=== PATIENT | female | born 1980 | race Caucasian/White ===

== ENCOUNTER 2025-01-23 11:24 | Emergency (ER) | payer OTHER, SELFPAY ==
[2025-01-23 11:29] VITALS: BP 136/76
--- NOTE | 2025-01-23 11:55 | ED.GENMED ---
History of Present Illness
General
Chief Complaint: Rectal Bleeding
Time Seen by Provider: 01/23/25 11:55
History of Present Illness
History of Present Illness:
TIME OF INITIAL ENCOUNTER: 12 PM
HPI: Last night at around 2 AM, the patient woke up to use the bathroom but also had sensation that she needed to have a bowel movement. She developed some cramping sensation. She then became diaphoretic and had a rather intense discomfort however
after she had what felt to be a loose bowel movement, she felt improved. She did not turn the lights on at that time and did not look at the stool. In the morning she had some additional cramping sensation and had another bowel movement this time
it was noted to be red blood. Currently she has minimal if any cramping and overall feels improved. She had a sensation of chills overnight.
EXAM:
GENERAL: Well appearing in no distress
HEENT: Moist oral mucosa
CARDIOVASCULAR: No murmurs, borderline tachycardic heart rate, regular rhythm, No chest wall tenderness
PULMONARY: No respiratory distress, breath sounds are clear and equal
ABDOMEN: Soft with no peritoneal signs, no tenderness
NEUROLOGIC: Excellent strength all extremities, no coordination deficits
PSYCHIATRIC: Appropriate mental status, normal insight and judgement
EXTREMITIES: Nontender, no edema, moves all extremities equally
SKIN: No rash, no lesions
NUMBER AND COMPLEXITY OF PROBLEMS ADDRESSED AT THE ENCOUNTER
� Chronic conditions affecting care: No significant past medical history
� Acute Exacerbation and/or Progression of Chronic Illness: This is an acute problem
� Differential Diagnosis includes: Viral illness, foodborne illness, colitis, internal hemorrhoid, diverticulosis
AMOUNT AND/OR COMPLEXITY OF DATA TO BE REVIEWED AND ANALYZED
� I performed an independent evaluation of and my interpretation is:
EKG:
CT:
X-rays:
Laboratory Studies: White count 13.3, hemoglobin 13.1, chemistries unremarkable, hCG negative
Other:
� Review of other/old records: No old records available for review in [facility]
� Clinical information was obtained by an independent historian: None needed
� Prescriptions/Medications Considered but not given:
� Further testing considered but not performed: Considered CT imaging however the patient has no pain nor tenderness on reexamination. We agreed to hold off on any imaging at this time but she will return here if symptoms worsen.
RISK OF COMPLICATIONS AND/OR MORBIDITY OR MORTALITY OF PATIENT MANAGEMENT
� Social determinants of health affecting care: Lives at home
� Discussion with other providers: GI front office to help arrange close follow-up
� Escalation of care including admission/observation vs risk of discharge considered: The patient is otherwise healthy and had episodes of cramping loose stool and this morning she noted bloody stool. On digital rectal
examination, she has an empty rectal vault. She denies any anticoagulation or antiplatelet use.
ANY OTHER UPDATES:
1:25 PM: I reassessed patient. The patient just had passed small amount of mucoid blood. There is no stool mixed in. On reassessment however she has absolutely no pain and has no tenderness on examination. 'I feel fine now'.
Phy Exam
Physical Exam
Physical Exam:
See HPI
Course
Orders/Labs/Results
Orders:
Orders
01/23/25 11:56
Test Result ONCE
01/23/25 12:10
Complete Blood Count/With Diff Urgent
Comprehensive Metabolic Panel Urgent
HCG, Serum Qualitative Screen Urgent
Abnormal Lab Results
01/23/25
12:10
WBC 13.3 H 10^3/uL
(4.8-10.8)
MCHC 32.7 L g/dL
(33.0-37.0)
MPV 11.5 H fL
(7.4-10.4)
Abs Immat Gran (auto) 0.1 H 10^3/uL
(0-0.05)
Absolute Neuts (auto) 11.7 H 10^3/uL
(1.4-6.5)
Absolute Lymphs (auto) 0.8 L 10^3/uL
(1.2-3.4)
Immature Gran % 0.7 H %
(0-0.5)
Neutrophils % 88.1 H %
(42.2-75.2)
Lymphocytes % 6.1 L %
(20.5-51.1)
Glucose 110 H mg/dl
(70-99)
01/23/25 12:10
01/23/25 12:10
Vital Signs
Initial and Last Documented VS:
Initial Vital Signs
Temp Pulse Resp BP Pulse Ox
36.6 C 103 18 136/76 100
01/23/25 11:29 01/23/25 11:29 01/23/25 11:29 01/23/25 11:29 01/23/25 11:29
Last Documented Vital Signs
Temp Pulse Resp BP Pulse Ox
36.6 C 85 16 109/84 100
01/23/25 11:29 01/23/25 13:00 01/23/25 13:00 01/23/25 13:00 01/23/25 12:45
*Critical Care Note
Total Time (30-74mins, 75-104mins- exclusive of procedures): Not Applicable
ED Attending Note
-
Portions of this chart may have been created with voice recognition software.� Occasional wrong word or��sound alike� substitutions may have occurred due to the inherent limitations of voice recognition software.
Discharge Plan
Departure
Patient Disposition: Home (Routine Discharge)
Date of Disposition: 01/23/25
Time of Disposition: 13:28
Patient with high blood pressure during this ER visit?: Yes
Discharge Problem:
Rectal bleeding
Prescriptions:
No Action
norgestimate-ethinyl estradiol [Sprintec (28)] 0.25-35 mg-mcg Tablet
1 tab PO DAILY
Referrals:
Shonna Payne MD [Active] - Follow up in 2-3 days
Sally Paez DO [Family Provider] -
Activity Restrictions/Additional Instructions:
Your white blood cell count is slightly high at 13.3, your hemoglobin level is normal at 13.1. Other basic blood work is normal. test is negative. I notified the GI office and I am hoping that they will call you early this coming week
to arrange close follow-up. Return here if worse or other concerns.
Interventions
Interventions:
*Risk Screen - Suicide Last Done: 01/23/25 11:29
*General Assessment Last Done: 01/23/25 11:29
*Neglect/Abuse Screening Last Done: 01/23/25 11:29
ED- Fall Risk Assessment Last Done: 01/23/25 12:48
VD-Qmgyci-Ysxfksbiay Assessment Last Done: 01/23/25 12:48
ED- Cardiac Assessment Last Done: 01/23/25 12:48
ED- Pulmonary Assessment Last Done: 01/23/25 12:48
Discharge Date and Time
Print Language: UGANDAN
[2025-01-23 12:20] LABS: % Basophils 0.5 % (0-2); % Eosinophils 0.8 % (0-6); % Immature Granulocytes 0.7 % (0-0.5); % Lymphocytes 6.1 % (20.5-51.1); % Monocytes 3.8 % (1.7-9.3); % Neutrophils 88.1 % (42.2-75.2); Absolute Basophils 0.1 10^3/uL (0-0.2); Absolute Eosinophils 0.1 10^3/uL (0-0.7); Absolute Immature Granulocytes 0.1 10^3/uL (0-0.05); Absolute Lymphocytes 0.8 10^3/uL (1.2-3.4); Absolute Monocytes 0.5 10^3/uL (0.1-0.6); Absolute Neutrophils 11.7 10^3/uL (1.4-6.5); Hematocrit 40.1 % (37.0-47.0); Hemoglobin 13.1 g/dL (12.0-16.0); Mean Corp Hgb Conc. 32.7 g/dL (33.0-37.0); Mean Corpuscular Hgb 29.1 pg (27.0-31.0); Mean Corpuscular Volume 89.1 fL (81.0-99.0); Mean Platelet Volume 11.5 fL (7.4-10.4); Nucleated Red Blood Cells % 0 %; Platelet Count 272 10^3/uL (130-400); Red Cell Dist. Width 13.2 % (11.5-14.5); White Blood Cell Count 13.3 10^3/uL (4.8-10.8)
[2025-01-23 12:46] LABS: ALT (SGPT) 14 U/L (0-35); AST (SGOT) 17 U/L (14-36); Albumin 4.4 g/dl (3.5-5.0); Alkaline Phosphatase 50 U/L (38-126); Blood Urea Nitrogen 13 mg/dl (7-17); Calcium 9.4 mg/dl (8.4-10.2); Carbon Dioxide 24 mmol/L (22-30); Chloride 104 mmol/L (98-107); Glucose 110 mg/dl (70-99); Potassium 4.2 mmol/L (3.5-5.1); Sodium 136 mmol/L (135-145); Total Bilirubin 0.8 mg/dl (0.2-1.3); Total Protein 7.1 g/dl (6.3-8.2); eGFR > 60.00
[2025-01-23 12:48] VITALS: BP 156/85
[2025-01-23 12:51] VITALS: BMI 23.0
[2025-01-23 12:54] LABS: HCG, Serum Qualitative Screen Negative
[2025-01-23 13:00] VITALS: BP 109/84
== END 2025-01-23 14:48 | disposition home or self-care (01) ==
LOC: EMR 11:24
PROVIDERS: EMERGENCY PHYSICIAN Emergency Medicine; FAMILY PHYSICIAN Family Medicine
DX: K62.5 Hemorrhage of anus and rectum (principal)
CPT/HCPCS: 99283; 80053; 84703; 85025

== ENCOUNTER 2025-03-09 06:26 | Day surgery (SDC) | payer OTHER, SELFPAY | END 2025-03-09 12:00 | disposition home or self-care (01) | LOC: GI 06:26 | PROVIDERS: ATTENDING PHYSICIAN Internal Medicine Gastroenterology | DX: R19.7 Diarrhea, unspecified (principal); K62.5 Hemorrhage of anus and rectum; K64.0 First degree hemorrhoids; D12.5 Benign neoplasm of sigmoid colon | CPT/HCPCS: 45385; 45380; 88305 ==